=== PATIENT | male | born 1935 | race Caucasian/White ===

== ENCOUNTER 2017-08-05 15:00 | Observation (INO) | payer MEDICARE, SELFPAY ==
[2017-08-05 15:01] VITALS: BP 109/55; PULSE 75; RESP 16; TEMP 36.2; O2SAT 92; BMI 30.6
--- NOTE | 2017-08-05 15:04 | HMH.EDGENADL ---
ED Disposition Clinical Impression: Syncope Qualifiers: Syncope type: unspecified Qualified Code(s): R55 - Syncope and collapse Disposition: Still a Patient Condition on Discharge: Good - Critical Care Critical Care Time: No Attestation: On , the high probability of a clinically significant, sudden or life threatening deterioration of the following system(s) required my full and direct attention, intervention and personal management. The time I documented below is in addition to time spent performing reported procedures but includes the following listed in this critical care notation. Medical Decision Making Vital Signs: 08/05/17 15:01 Temperature 97.2 F L Temperature Source Oral Pulse Rate [Right Radial] 75 Respiratory Rate 16 Blood Pressure [Right Arm] 109/55 Blood Pressure Mean [Right Arm] 73 Blood Pressure Source [Right Arm] Automatic Cuff Blood Pressure Position [Right Arm] Sitting 02 Sat by Pulse Oximetry 92 L Oxygen Delivery Method Room Air - Lab Data Lab Results 08/05/17 15:00: WBC 8.8, RBC 5.01, Hgb 15.0, Hct 47.7, MCV 95.1 H, MCH 30.0, MCHC 31.6 L, RDW 12.6, Plt Count 258, MPV 8.3, Neut % (Auto) 60.9, Lymph % (Auto) 28.2, [place] % (Auto) 9.9 H, Eos % (Auto) 0.7, Baso % (Auto) 0.4, Neut # (Auto) 5.3, Lymph # (Auto) 2.5, [place] # (Auto) 0.9, Eos # (Auto) 0.1, Baso # (Auto) 0.0 08/05/17 15:00: Sodium 139, Potassium 3.5, Chloride 101, Carbon Dioxide 29, Anion Gap 12.5, BUN 21 H, Creatinine 1.45 H, Estimated Creat Clear 61, Estimated GFR 47 L, Est GFR ( Amer) 57 L, Glucose 141 H, Calcium 9.3, Total Bilirubin 0.6, AST 15, ALT 20, Alkaline Phosphatase 93, Total Creatine Kinase 79, CK-MB (CK-2) 1.0, CK-MB (CK-2) Rel Index 1.3, Troponin I 0.04, Total Protein 7.4, Albumin 3.5, Globulin 3.9 H, Albumin/Globulin Ratio 0.9 L Result diagrams: 08/05/17 15:00 08/05/17 15:00 - CT Data CT Scan: Head Time Received: 17:[address] Reviewed: Yes: I have viewed the radiologist's interpretation Findings Narrative: No acute process. Mild paranasal sinus disease maxillary and ethmoid sinuses. - ECG Data Tracing #1 EKG interpreted by Tate Hernandez MD: Rhythm: sinus Rate: 77 [place]: Left Ectopy: Single PVC Conduction: Nonspecific intraventricular conduction delay ST Segment Changes: none T Wave Changes: none Q Waves: none No evidence of acute ischemia or injury - Mike Inquiry Pt receiving controlled substance: No Medical Decision Making Narrative: 6:05 PM: I have discussed the case with Dr. Brantley who prefers to admit the patient to the hospital. We discussed the patient's clinical information, including history, exam, laboratory and radiology results and ED course. Per hospital procedure, I will write temporary bridge inpatient orders on the patient. 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 He was at a . He began feeling a little dizzy and not and according to his she felt him pushing on her leg and when she looked at him he was unresponsive and flaccid. She says the total episode lasted 5 minutes before he began talking again. He was completely alert and oriented once he began talking, no evidence of a post ictal state. There was a nurse present at the scene and she said that his pulse got weak, but apparently did not lose a pulse. He says that he has no pain and did not have any pain at the time. No headache, abdominal pain, chest pain, or back pain. He is not short of breath. He has had a mild cold for a few days. He has felt fatigued or weak when he gets up and walks around for the past few days. No history of syncope in the past. No new medications. - Related Data Home Medications Medication Instructions Recorded Confir
[2017-08-05 15:06] VITALS: BMI 31.1
--- NOTE | 2017-08-05 15:20 | CT_ITS ---
CT head/brain wo con HISTORY: ITS.REASON: SYNCOPE ORDERING PHYSICIAN: Tate Hernandez MD PATIENT AGE: 81 years COMPARISON: None TECHNIQUE: Axial images obtained without contrast. Brain and bone windows reviewed. FINDINGS: No midline shift, mass effect, intracranial hemorrhage, hydrocephalus, or extra-axial fluid collection is evident. Atrophy with periventricular ischemic gliotic change. The calvarium has an unremarkable appearance. No mastoid effusion. Mild mucosal thickening maxillary sinuses and ethmoid sinus.. IMPRESSION: 1. No acute finding. 2. Atrophy with periventricular ischemic gliotic change. 3. Paranasal sinus disease.
[2017-08-05 15:22] LABS: Basophils % 0.4 % (0.1-2.0); Eosinophils # 0.1 K/mm3 (0.0-0.4); Eosinophils % 0.7 % (0.1-12.0); Hematocrit 47.7 % (42.0-52.0); Lymphocytes # 2.5 K/mm3 (0.7-4.5); Lymphocytes % 28.2 K/mm3 (10-50); Mean Corpuscular HGB Conc 31.6 g/dL (31.8-35.4); Mean Corpuscular Volume 95.1 fl (80-94); Mean Platelet Volume 8.3 fl (7.4-10.4); Monocytes # 0.9 K/mm3 (0.1-1.0); Monocytes % 9.9 % (1.7-9.3); Neutrophils # 5.3 K/mm3 (1.8-7.8); Neutrophils % 60.9 % (37.0-80.0); Platelet Count 258 K/mm3 (142-424); Red Blood Count 5.01 M/mm3 (4.60-6.20); Red Cell Distribution Width 12.6 % (11.5-17.5); White Blood Count 8.8 K/mm3 (4.8-10.8)
[2017-08-05 15:46] LABS: Alanine Aminotransferase 20 U/L (12-78); Albumin Level 3.5 gm/dL (3.4-5.0); Albumin/Globulin Ratio 0.9 (1.1-1.8); Alkaline Phosphatase 93 U/L (46-116); Anion Gap 12.5 mEq/L (5-15); Aspartate Amino Transferase 15 U/L (15-37); Bilirubin,Total 0.6 mg/dL (0.2-1.0); Blood Urea Nitrogen 21 mg/dL (7-18); CKMB Relative Index 1.3 U/L (0-4.0); Calcium 9.3 mg/dL (8.5-10.1); Carbon Dioxide 29 mmol/L (21.0-32.0); Chloride 101 mmol/L (98-107); Creatine Kinase 79 U/L (39-308); Creatinine Clearance Estimated 61 mL/min (0-300); Creatinine,Serum 1.45 mg/dL (0.70-1.30); Estimated Glomerular Filt Rate 47 ml/min (>60); GFR (African American) 57 ML/MIN (>60); Globulin 3.9 gm/dl (1.3-3.2); Potassium 3.5 mmoL/L (3.5-5.1); Sodium 139 mmol/L (136-145); Total Protein,Serum 7.4 gm/dL (6.4-8.2); Troponin I 0.04 ng/ml (0.00-0.06)
[2017-08-05 15:54] LABS: Glucose 141 mg/dL (74-106)
--- NOTE | 2017-08-05 16:50 | XR_ITS ---
XR chest portable HISTORY: ITS.REASON: cough ORDERING PHYSICIAN: Tate Hernandez MD PATIENT AGE: 81 years COMPARISON: 12/04/2015 FINDINGS: The cardiomediastinal silhouette and pulmonary vascularity are within normal limits. The lungs are clear without infiltrates, suspicious nodules, or pleural effusions. Chronic changes are present in the lung bases. No acute bony abnormalities. IMPRESSION: No acute finding
--- NOTE | 2017-08-05 18:54 | PC.NURSE ---
REPORT CALLED TO DORIAN SILVA RN
[2017-08-05 19:39] VITALS: BP 115/61; PULSE 81; RESP 12; TEMP 37.1; O2SAT 98
[2017-08-05 19:47] VITALS: BP 100/79; PULSE 63; RESP 18; TEMP 36.7; O2SAT 100; BMI 32.1
[2017-08-05 20:00] VITALS: PULSE 70
--- NOTE | 2017-08-05 20:48 | HMH.HP ---
*Admission Date: 08/05/17 *Chief complaint: Syncope *History of present illness: This 81-year-old white male was sitting in a chair at a when he lost consciousness. His was sitting next to him and felt his leg fall against hers and then noticed that he was not responsive. He was placed on the floor and may have had some chest compressions briefly before he regained consciousness. His estimates the time at about 7 or 8 minutes that he was not conscious. When he regained consciousness he was not post ictal. He was brought to the emergency room by ambulance. EKG and cardiac enzymes initially are normal. He does show some ectopic activity on EKG and on heart monitor. He has no prior history of syncope. He states that he has not felt well the past 2 days but has had no specific dizziness. He has noted some dizziness in the past if he stands too quickly from a sitting position. He does have hypertension and edema and takes Exforge 5/160 and takes furosemide 20 mg daily. [facility] History Medical History: Denies:: Cancer, Cerebrovascular Accident (He reports he had some sort of life-threatening illness as a young child ), Diabetes Mellitus Type 1, Diabetes Mellitus Type 2, Internal Pacemaker, MRSA, Myocardial Infarction, Transient Ischemic Attacks (TIA) Laterality Cases: Bilateral: Total Knee Replacement (LTK May 2012, RTK May 2013), Other (Vein stripping) Other Surgeries: Yes: Hernia Repair (Inguinal). No: Pacemaker Amputation: No Fractures: No - *Social History Educational Level: Completed Graduate School Smoking Status: Former smoker #Yrs smoked (if former smoker): 20 (Quit 1999) Smoking End Date: 1999 Alcohol Intake: current Alcohol Intake Frequency:: a few times a month Substance Use Type: denies use Occupational Status: retired Housing: house Household Members: spouse - Psychiatric History Expresses thoughts of harming self/others: None Suicide Plan Description: No Plan *Family Hx:: Cancer, Diabetes, Heart Attack, Hypertension Comment: Both parents lived to be quite elderly (80's). He has a sister who is elderly(85). - Pediatric Specific History Comment: As a child he overheard a doctor tell his father that he would not live past the age of 18. He does not know the details of the illness that he had. Review of Systems - Constitutional Reports malaise, Denies anorexia, Denies body ache(s), Denies weight loss - Eyes Denies blurry vision - ENT Reports abnormal hearing, Reports dizziness, Denies poor balance, Denies sore throat, Denies throat swelling Comments: Some mild orthostatic dizziness - *Cardiovascular Reports leg swelling, Denies chest pain, Denies chest pain with activity, Denies generalized swelling, Denies irregular heart rhythm, Denies lightheadedness, Denies shortness of breath when lying down, Denies rapid, pounding, or irregular heartbeat Comments: He does have chronic leg edema. - *Respiratory Reports chest congestion, Reports cough, Denies stridor, Denies wheezing - *Gastrointestinal Denies abdominal pain, Denies change in bowel habits, Denies vomiting - *Genitourinary Denies difficulty urinating - *Musculoskeletal Reports joint pain, Denies abnormal walking - Integumentary/Breasts Denies new lesions - *Neurologic Reports dizziness, Reports fainting, Denies abnormal speech, Denies behavioral changes, Denies confusion, Denies seizure-like activity, Denies headache(s), Denies numbness, Denies tremor(s), Denies weakness - Psychiatric Denies anxiety, Denies behavioral changes, Denies change in appetite - Endocrine Denies rapid, pounding, or irregular heartbeat - Hematologic/Lymphatic Denies easy bleeding, Denies easy bruising - Allergic/Immunologic Denies GI upset with certain foods Meds Home Medications Medication Instructions Recorded Confirmed Type Amlodipine/Valsartan 5 - 160 mg PO DAILY 08/05/17 08/05/17 History [Amlodipine-Valsartan 5-160 mg]
--- NOTE | 2017-08-05 20:52 | P.HP_ITS ---
*Admission Date: 08/05/17 *Chief complaint: Syncope *History of present illness: This 81-year-old white male was sitting in a chair at a when he lost consciousness. His was sitting next to him and felt his leg fall against hers and then noticed that he was not responsive. He was placed on the floor and may have had some chest compressions briefly before he regained consciousness. His estimates the time at about 7 or 8 minutes that he was not conscious. When he regained consciousness he was not post ictal. He was brought to the emergency room by ambulance. EKG and cardiac enzymes initially are normal. He does show some ectopic activity on EKG and on heart monitor. He has no prior history of syncope. He states that he has not felt well the past 2 days but has had no specific dizziness. He has noted some dizziness in the past if he stands too quickly from a sitting position. He does have hypertension and edema and takes Exforge 5/160 and takes furosemide 20 mg daily. [facility] History Medical History: Denies:: Cancer, Cerebrovascular Accident (He reports he had some sort of life-threatening illness as a young child ), Diabetes Mellitus Type 1, Diabetes Mellitus Type 2, Internal Pacemaker, MRSA, Myocardial Infarction, Transient Ischemic Attacks (TIA) Laterality Cases: Bilateral: Total Knee Replacement (LTK May 2012, RTK May 2013), Other (Vein stripping) Other Surgeries: Yes: Hernia Repair (Inguinal). No: Pacemaker Amputation: No Fractures: No - *Social History Educational Level: Completed Graduate School Smoking Status: Former smoker #Yrs smoked (if former smoker): 20 (Quit 1999) Smoking End Date: 1999 Alcohol Intake: current Alcohol Intake Frequency:: a few times a month Substance Use Type: denies use Occupational Status: retired Housing: house Household Members: spouse - Psychiatric History Expresses thoughts of harming self/others: None Suicide Plan Description: No Plan *Family Hx:: Cancer, Diabetes, Heart Attack, Hypertension Comment: Both parents lived to be quite elderly (80's). He has a sister who is elderly(85). - Pediatric Specific History Comment: As a child he overheard a doctor tell his father that he would not live past the age of 18. He does not know the details of the illness that he had. Review of Systems - Constitutional Reports malaise, Denies anorexia, Denies body ache(s), Denies weight loss - Eyes Denies blurry vision - ENT Reports abnormal hearing, Reports dizziness, Denies poor balance, Denies sore throat, Denies throat swelling Comments: Some mild orthostatic dizziness - *Cardiovascular Reports leg swelling, Denies chest pain, Denies chest pain with activity, Denies generalized swelling, Denies irregular heart rhythm, Denies lightheadedness, Denies shortness of breath when lying down, Denies rapid, pounding, or irregular heartbeat Comments: He does have chronic leg edema. - *Respiratory Reports chest congestion, Reports cough, Denies stridor, Denies wheezing - *Gastrointestinal Denies abdominal pain, Denies change in bowel habits, Denies vomiting - *Genitourinary Denies difficulty urinating - *Musculoskeletal Reports joint pain, Denies abnormal walking - Integumentary/Breasts Denies new lesions - *Neurologic Reports dizziness, Reports fainting, Denies abnormal speech, Denies behavioral changes, Denies confusion, Denies seizure-like activity, Denies headache(s), Denies numbness, Denies tremor(s), Denies weakness - Psychiatric Denies anxiety, Denies behavioral changes, Denies change in
[2017-08-05 22:16] LABS: CKMB Relative Index 1.1 U/L (0-4.0); Creatine Kinase 89 U/L (39-308); Troponin I 0.03 ng/ml (0.00-0.06)
[2017-08-06] VITALS (9 sets, daily range): BP systolic 112–136; BP diastolic 65–85; PULSE 59–75; RESP 17–18; TEMP 36.3–36.9; O2SAT 92–93
--- NOTE | 2017-08-06 03:58 | PC.NURSE ---
LAYING IN BED RESTING AT THIS TIME. SPOUSE AT BEDSIDE. HAS REST MOST OF NIGHT, NO COMPLAINTS OF PAIN OR SYNCOPE. HAS HAD SINUS ARYTHMIA WITH PJC'S ON TELEMETRY. HAS A ECHO SCHEDULED AT 0800. LUNGS ARE CLEAR, RESP EVEN AND NONLABORED. HAS BEEN UP TO RESTROOM WITH STANDBY ASSIST, HAS TOLERATED WELL. IV IS PATENT. STATES HAS NO NEEDS AT THIS TIME. BED LOCKED IN LOW POSITION, SIDE RALES UP X 2. CALL LIGHT WITHIN REACH. WILL CONTINUE TO MONITOR. ENCOURAGED TO CALL OUT FOR ANY NEEDS.
--- NOTE | 2017-08-06 07:33 | PC.NURSE ---
Report received from Grazyna Funk RN
[2017-08-06 07:34] LABS: Alanine Aminotransferase 19 U/L (12-78); Albumin Level 2.8 gm/dL (3.4-5.0); Albumin/Globulin Ratio 0.8 (1.1-1.8); Alkaline Phosphatase 75 U/L (46-116); Anion Gap 11.4 mEq/L (5-15); Aspartate Amino Transferase 17 U/L (15-37); Bilirubin,Total 0.5 mg/dL (0.2-1.0); Blood Urea Nitrogen 18 mg/dL (7-18); CKMB Relative Index 0.8 U/L (0-4.0); Carbon Dioxide 28 mmol/L (21.0-32.0); Chloride 106 mmol/L (98-107); Creatine Kinase 78 U/L (39-308); Creatine Kinase MB 0.6 mg/ml (0.0-3.6); Creatinine Clearance Estimated 94 mL/min (0-300); Creatinine,Serum 0.87 mg/dL (0.70-1.30); Estimated Glomerular Filt Rate 85 ml/min (>60); GFR (African American) 102 ML/MIN (>60); Globulin 3.4 gm/dl (1.3-3.2); Glucose 99 mg/dL (74-106); Potassium 3.4 mmoL/L (3.5-5.1); Sodium 142 mmol/L (136-145); Total Protein,Serum 6.2 gm/dL (6.4-8.2); Troponin I 0.04 ng/ml (0.00-0.06)
[2017-08-06 07:39] LABS: Basophils % 0.4 % (0.1-2.0); Eosinophils % 0.6 % (0.1-12.0); Hematocrit 41.3 % (42.0-52.0); Lymphocytes # 1.6 K/mm3 (0.7-4.5); Lymphocytes % 29.7 K/mm3 (10-50); Mean Corpuscular HGB Conc 32.1 g/dL (31.8-35.4); Mean Corpuscular Hemoglobin 30.1 pg (27.0-31.2); Mean Corpuscular Volume 93.8 fl (80-94); Mean Platelet Volume 8.3 fl (7.4-10.4); Monocytes # 0.7 K/mm3 (0.1-1.0); Neutrophils % 56.3 % (37.0-80.0); Platelet Count 204 K/mm3 (142-424); Red Cell Distribution Width 12.7 % (11.5-17.5); White Blood Count 5.4 K/mm3 (4.8-10.8)
[2017-08-06 07:48] LABS: Calcium 8.3 mg/dL (8.5-10.1)
[2017-08-06 07:53] LABS: Hemoglobin 13.2 g/dL (14.1-18.0)
--- NOTE | 2017-08-06 09:49 | HMH.PHAVTE ---
[facility] Pharmacy VTE Monitoring - Patient Demographics Admission date: 08/05/17 Report Date: 08/06/17 Time: 09:49 Allergies/Adverse Reactions: Patient Allergies NKDA Allergy (Unknown, Uncoded 06/21/17 14:33) Height: 1.85 m Weight: 110.45 kg Patient Problems: Current Active Problems Syncope (Acute) Ectopic beats (Acute) Hypertension (Chronic) Edema (Chronic) - VTE Risk Labs: VTE Related Lab Results Hgb 13.2 g/dL (14.1-18.0) L D 08/06/17 06:05 Hct 41.3 % (42.0-52.0) L 08/06/17 06:05 Plt Count 204 K/mm3 (142-424) 08/06/17 06:05 BUN 18 mg/dL (7-18) 08/06/17 06:05 Creatinine 0.87 mg/dL (0.70-1.30) D 08/06/17 06:05 Estimated Creat Clear 94 mL/min (0-300) 08/06/17 06:05 Was VTE Risk Assessment Performed: Yes VTE Score: 2 VTE Risk Level: Very Low Risk - Prophylaxis VTE Prophylaxis Ordered?: Yes Types of VTE Prophylaxis: TEDS Knee High Location of Applied Device: Bilateral Lower Extremeties
--- NOTE | 2017-08-06 14:47 | HMH.ACPN2 ---
Internal Medicine - PN: Subj *Date: 08/06/17 *Time: 14:47 Interval history: The patient was seen this morning. He remained stable through the night. He shows frequent junctional ectopics and sinus arrhythmia. EKG is being repeated. Troponins were negative. His potassium was slightly low. Potassium was 3.5 on admission and 3.4 this morning. He is in no acute distress and has no chest pain. The patient's son is me that recently his father is seemed to show more difficulty with his memory. He also states that he has fallen several times though it appears that this is not related to syncope. Exam Vital signs and Labs for Last 24 Hours: Temp Pulse Resp BP Pulse Ox 97.4 F L 64 18 136/85 93 L 08/06/17 11:22 08/06/17 11:22 08/06/17 11:22 08/06/17 11:22 08/06/17 11:22 Laboratory Results - last 24 hr 08/05/17 21:35: Total Creatine Kinase 89, CK-MB (CK-2) 1.0, CK-MB (CK-2) Rel Index 1.1, Troponin I 0.03 08/06/17 06:05: Sodium 142, Potassium 3.4 L, Chloride 106, Carbon Dioxide 28, Anion Gap 11.4, BUN 18, Creatinine 0.87 D, Estimated Creat Clear 94, Estimated GFR 85, Est GFR ( Amer) 102 D, Glucose 99 D, Calcium 8.3 L D, Total Bilirubin 0.5, AST 17, ALT 19, Alkaline Phosphatase 75, Total Creatine Kinase 78, CK-MB (CK-2) 0.6 D, CK-MB (CK-2) Rel Index 0.8, Troponin I 0.04, Total Protein 6.2 L, Albumin 2.8 L D, Globulin 3.4 H, Albumin/Globulin Ratio 0.8 L 08/06/17 06:05: WBC 5.4 D, RBC 4.40 L, Hgb 13.2 L D, Hct 41.3 L, MCV 93.8, MCH 30.1, MCHC 32.1, RDW 12.7, Plt Count 204, MPV 8.3, Neut % (Auto) 56.3, Lymph % (Auto) 29.7, [place] % (Auto) 13.0 H, Eos % (Auto) 0.6, Baso % (Auto) 0.4, Neut # (Auto) 3.0, Lymph # (Auto) 1.6, [place] # (Auto) 0.7, Eos # (Auto) 0.0, Baso # (Auto) 0.0 Selected Entries 08/05/17 15:01 08/05/17 19:47 08/06/17 00:15 02 Sat by Pulse Oximetry 92 L 100 92 L 08/06/17 04:00 08/06/17 07:34 08/06/17 11:22 02 Sat by Pulse Oximetry 93 L 92 L 93 L Laboratory Tests 08/05/17 08/05/17 08/05/17 15:00 15:00 21:35 WBC 8.8 Hgb 15.0 Potassium 3.5 Creatinine 1.45 H Troponin I 0.04 0.03 08/06/17 08/06/17 06:05 06:05 WBC 5.4 D Hgb 13.2 L D Potassium 3.4 L Creatinine 0.87 D Troponin I 0.04 I & O for Last 24 hours: Intake & Output 08/04/17 08/05/17 08/06/17 08/07/17 11:59 11:59 11:59 11:59 Intake Total 1001 / 1001 480 / 480 Balance 1001 / 1001 480 / 480 Weight 243 lb 8 oz - Constitutional no acute distress - *Routine HEENT Exam Head: Present: normocephalic, atraumatic Eye: Present: PERRL ENT: Present: mucous membranes moist - *Routine Respiratory Exam Present: CTA bilaterally - *Routine Cardiovascular Exam Comments: His rhythm seems to be regular though there are ectopics noted. - *Routine Abdominal Exam Present: soft. Absent: tenderness - *Routine Extremities Exam Comments: Trace to 1+ leg edema. Assessment and Plan (1) Syncope Current visit: Yes Status: Acute Qualifiers: Syncope type: unspecified Qualified Code(s): R55 - Syncope and collapse Category: Medical Code(s): R55 - Syncope and collapse (2) Ectopic beats Current visit: Yes Status: Acute Category: Medical Code(s): I49.49 - Other premature depolarization (3) Hypertension Current visit: Yes Status: Chronic Category: Medical Code(s): I10 - Essential (primary) hypertension (4) Edema Current visit: Yes Status: Chronic Category: Medical Code(s): R60.9 - Edema, unspecified - Assessment and plan all Dx Assessment and Plan for all problems:: Awaiting repeat EKG. His EKG in the emergency room showed sinus rhythm with an occasional PVC. He can probably be discharged with a Holter monitor in place. I will also give prescription for potassium 20 mEq a day. I would like to see him Tuesday (in 2 days) to arrange for cardiology evaluation. He should restrict his activity until then.
--- NOTE | 2017-08-06 14:51 | P.PN_ITS ---
Internal Medicine - PN: Subj *Date: 08/06/17 *Time: 14:47 Interval history: The patient was seen this morning. He remained stable through the night. He shows frequent junctional ectopics and sinus arrhythmia. EKG is being repeated. Troponins were negative. His potassium was slightly low. Potassium was 3.5 on admission and 3.4 this morning. He is in no acute distress and has no chest pain. The patient's son is me that recently his father is seemed to show more difficulty with his memory. He also states that he has fallen several times though it appears that this is not related to syncope. Exam Vital signs and Labs for Last 24 Hours: Temp Pulse Resp BP Pulse Ox 97.4 F L 64 18 136/85 93 L 08/06/17 11:22 08/06/17 11:22 08/06/17 11:22 08/06/17 11:22 08/06/17 11:22 Laboratory Results - last 24 hr 08/05/17 21:35: Total Creatine Kinase 89, CK-MB (CK-2) 1.0, CK-MB (CK-2) Rel Index 1.1, Troponin I 0.03 08/06/17 06:05: Sodium 142, Potassium 3.4 L, Chloride 106, Carbon Dioxide 28, Anion Gap 11.4, BUN 18, Creatinine 0.87 D, Estimated Creat Clear 94, Estimated GFR 85, Est GFR ( Amer) 102 D, Glucose 99 D, Calcium 8.3 L D, Total Bilirubin 0.5, AST 17, ALT 19, Alkaline Phosphatase 75, Total Creatine Kinase 78 , CK-MB (CK-2) 0.6 D, CK-MB (CK-2) Rel Index 0.8, Troponin I 0.04, Total Protein 6.2 L, Albumin 2.8 L D, Globulin 3.4 H, Albumin/Globulin Ratio 0.8 L 08/06/17 06:05: WBC 5.4 D, RBC 4.40 L, Hgb 13.2 L D, Hct 41.3 L, MCV 93.8, MCH 30.1, MCHC 32.1, RDW 12.7, Plt Count 204, MPV 8.3, Neut % (Auto) 56.3, Lymph % ( Auto) 29.7, [place] % (Auto) 13.0 H, Eos % (Auto) 0.6, Baso % (Auto) 0.4, Neut # ( Auto) 3.0, Lymph # (Auto) 1.6, [place] # (Auto) 0.7, Eos # (Auto) 0.0, Baso # (Auto ) 0.0 Selected Entries 08/05/17 15:01 08/05/17 19:47 08/06/17 00:15 02 Sat by Pulse Oximetry 92 L 100 92 L 08/06/17 04:00 08/06/17 07:34 08/06/17 11:22 02 Sat by Pulse Oximetry 93 L 92 L 93 L Laboratory Tests 08/05/17 08/05/17 08/05/17 15:00 15:00 21:35 WBC 8.8 Hgb 15.0 Potassium 3.5 Creatinine 1.45 H Troponin I 0.04 0.03 08/06/17 08/06/17 06:05 06:05 WBC 5.4 D Hgb 13.2 L D Potassium 3.4 L Creatinine 0.87 D Troponin I 0.04 I & O for Last 24 hours: Intake & Output 08/04/17 08/05/17 08/06/17 08/07/17 11:59 11:59 11:59 11:59 Intake Total 1001 / 1001 480 / 480 Balance 1001 / 1001 480 / 480 Weight 243 lb 8 oz - Constitutional no acute distress - *Routine HEENT Exam Head: Present: normocephalic, atraumatic Eye: Present: PERRL ENT: Present: mucous membranes moist - *Routine Respiratory Exam Present: CTA bilaterally - *Routine Cardiovascular Exam Comments: His rhythm seems to be regular though there are ectopics noted. - *Routine Abdominal Exam Present: soft. Absent: tenderness - *Routine Extremities Exam Comments: Trace to 1+ leg edema. Assessment and Plan (1) Syncope Current visit: Yes Status: Acute Qualifiers: Syncope type: unspecified Qualified Code(s): R55 - Syncope and collapse Category: Medical Code(s): R55 - Syncope and collapse (2) Ectopic beats Current visit: Yes Status: Acute Category: Medical Code(s): I49.49 - Other pre
[2017-08-06 15:40] LABS: Thyroid Stimulating Hormone 0.53 uIU/ml (0.358-3.740)
--- NOTE | 2017-08-06 16:25 | PC.NURSE ---
hospital monitor removed, cleaned and returned to marketing community liaison area.
--- NOTE | 2017-08-06 16:37 | PC.NURSE ---
Pt home meds given back to patient.
--- NOTE | 2017-08-08 20:54 | HMH.DCSUM ---
General - General Admission date: 08/05/17 Discharge date: 08/06/17 HPI HPI: This 81-year-old white male was sitting in a chair at a when he lost consciousness. His was sitting next to him and felt his leg fall against hers and then noticed that he was not responsive. He was placed on the floor and may have had some chest compressions briefly before he regained consciousness. His estimates the time at about 7 or 8 minutes that he was not conscious. When he regained consciousness he was not post ictal. He was brought to the emergency room by ambulance. EKG and cardiac enzymes initially are normal. He does show some ectopic activity on EKG and on heart monitor. He has no prior history of syncope. He states that he has not felt well the past 2 days but has had no specific dizziness. He has noted some dizziness in the past if he stands too quickly from a sitting position. He does have hypertension and edema and takes Exforge 5/160 and takes furosemide 20 mg daily. Objective Vital signs: Temp Pulse Resp BP Pulse Ox 98.5 F 59 L 18 122/75 92 L 08/06/17 16:36 08/06/17 16:36 08/06/17 16:36 08/06/17 16:36 08/06/17 16:36 Narrative: - Constitutional no acute distress, cooperative - *Routine HEENT Exam Eye: Present: EOMI, PERRL. Absent: conjunctival icterus, nystagmus ENT: Present: mucous membranes moist, external ear normal - *Routine Neck Exam Present: supple. Absent: lymphadenopathy, thyromegaly - Routine Chest/Breast/Axilla Exam Chest wall: Absent: tenderness - *Routine Respiratory Exam Comments: Good air movement bilaterally. A few rhonchi are heard in the left base. - *Routine Cardiovascular Exam Comments: An occasional ectopic is noted - *Routine Abdominal Exam Present: soft. Absent: tenderness, distended, organomegaly - *Routine Extremities Exam Present: edema (2+ better than usual) - Routine Back/Spine/Pelvis Exam Comments: Mild dorsal kyphosis Hospital Course Hospital Course: He was admitted for overnight observation and equipment monitor phototypesetting. The patient remained stable through the night. He showed frequent junctional ectopics and sinus arrhythmia. Troponins were negative. His potassium was slightly low. The patient's son stated recently his father seemed to show more difficulty with his memory. He also stated that he had fallen several times though it appeared that this was not related to syncope. He was stable to be discharged home with a Holter monitor in place. He was also given a prescription for potassium 20 mEq a day. He will f/u in the office of [facility] to arrange for cardiology evaluation. DS: Diagnosis - Discharge Diagnosis (1) Ectopic beats Status: Acute (2) Syncope Status: Acute (3) Edema Status: Chronic (4) Hypertension Status: Chronic Meds Home Medications Medication Instructions Recorded Confirmed Type Amlodipine/Valsartan 5 - 160 mg PO DAILY 08/05/17 08/05/17 History [Amlodipine-Valsartan 5-160 mg] Atorvastatin Calcium [Atorvastatin 20 mg PO HS 08/05/17 08/06/17 History 20mg Tab] Furosemide [Furosemide 20mg Tab] 20 mg PO DAILY 08/05/17 08/05/17 History Allergies Allergy/AdvReac Type Severity Reaction Status Date / Time NKDA Allergy Unknown Uncoded 06/21/17 14:33 Discharge Plan - Patient Discharge Instructions ACTIVITY: Limited activity DIET: continue same diet Additional Instructions: As tolerated Patient Instructions: DI for Syncope in Adults (Fainting) - Follow up Plan Follow up with: Cynthia Brantley MD [Family Provider] - Disposition: Home, Self-Long Term Medications: Home Medications Medication Instructions Recorded Confirmed Type Amlodipine/Valsartan 5 - 160 mg PO DAILY 08/05/17 08/05/17 History [Amlodipine-Valsartan 5-160 mg] Atorvastatin Calcium [Atorvastatin 20 mg PO HS 08/05/17 08/06/17 History 20mg Tab] Furosemide [Furosemide 20mg T
--- NOTE | 2017-08-08 21:01 | P.DS_ITS ---
General - General Admission date: 08/05/17 Discharge date: 08/06/17 HPI HPI: This 81-year-old white male was sitting in a chair at a when he lost consciousness. His was sitting next to him and felt his leg fall against hers and then noticed that he was not responsive. He was placed on the floor and may have had some chest compressions briefly before he regained consciousness. His estimates the time at about 7 or 8 minutes that he was not conscious. When he regained consciousness he was not post ictal. He was brought to the emergency room by ambulance. EKG and cardiac enzymes initially are normal. He does show some ectopic activity on EKG and on heart monitor. He has no prior history of syncope. He states that he has not felt well the past 2 days but has had no specific dizziness. He has noted some dizziness in the past if he stands too quickly from a sitting position. He does have hypertension and edema and takes Exforge 5/160 and takes furosemide 20 mg daily. Objective Vital signs: Temp Pulse Resp BP Pulse Ox 98.5 F 59 L 18 122/75 92 L 08/06/17 16:36 08/06/17 16:36 08/06/17 16:36 08/06/17 16:36 08/06/17 16:36 Narrative: - Constitutional no acute distress, cooperative - *Routine HEENT Exam Eye: Present: EOMI, PERRL. Absent: conjunctival icterus, nystagmus ENT: Present: mucous membranes moist, external ear normal - *Routine Neck Exam Present: supple. Absent: lymphadenopathy, thyromegaly - Routine Chest/Breast/Axilla Exam Chest wall: Absent: tenderness - *Routine Respiratory Exam Comments: Good air movement bilaterally. A few rhonchi are heard in the left base. - *Routine Cardiovascular Exam Comments: An occasional ectopic is noted - *Routine Abdominal Exam Present: soft. Absent: tenderness, distended, organomegaly - *Routine Extremities Exam Present: edema (2+ better than usual) - Routine Back/Spine/Pelvis Exam Comments: Mild dorsal kyphosis Hospital Course Hospital Course: He was admitted for overnight observation and gut snatcher. The patient remained stable through the night. He showed frequent junctional ectopics and sinus arrhythmia. Troponins were negative. His potassium was slightly low. The patient's son stated recently his father seemed to show more difficulty with his memory. He also stated that he had fallen several times though it appeared that this was not related to syncope. He was stable to be discharged home with a Holter monitor in place. He was also given a prescription for potassium 20 mEq a day. He will f/u in the office of [facility] to arrange for cardiology evaluation. DS: Diagnosis - Discharge Diagnosis (1) Ectopic beats Status: Acute (2) Syncope Status: Acute (3) Edema Status: Chronic (4) Hypertension Status: Chronic Meds Home Medications Medication Instructions Recorded Confirmed Type Amlodipine/Valsartan 5 - 160 mg PO DAILY 08/05/17 08/05/17 History [Amlodipine-Valsartan 5-160 mg] Atorvastatin Calcium [Atorvastatin 20 mg PO HS 08/05/17 08/06/17 History 20mg Tab] Furosemide [Furosemide 20mg Tab] 20 mg PO DAILY 08/05/17 08/05/17 History Allergies Allergy/AdvReac Type Severity Reaction Status Date / Time NKDA Allergy Unknown Uncoded 06/21/17 14:33 Discharge Plan - Patient Discharge Instructions MARSHALL
== END 2017-08-06 16:45 | disposition home or self-care (01) ==
LOC: ER 18:13 → 2ND 20:48
PROVIDERS: Admitting Provider Family Medicine; Emergency Provider Emergency Medicine; Family Provider Family Medicine; Visit Provider Family Medicine
DX: R55 Syncope and collapse (principal); I49.49 Other premature depolarization; I10 Essential (primary) hypertension; R94.31 Abnormal electrocardiogram [ECG] [EKG]
CPT/HCPCS: 36415; 70450; 71045; 80053; 82550; 82553; 84443; 84484; 85025; 93005; 93041; 93225; 93226; 96365; 99283; G0378

== ENCOUNTER 2017-08-10 07:22 | Day surgery (SDC) | payer MEDICARE, SELFPAY ==
[2017-08-10] VITALS (12 sets, daily range): BP systolic 101–133; BP diastolic 64–79; PULSE 56–82; RESP 14–20; TEMP 36.6; O2SAT 91–94; BMI 32.7
--- NOTE | 2017-08-10 | IR_ITS ---
CARDIAC CATHETERIZATION DATE OF CATHETERIZATION:08/10/2017 10:24 AM PROCEDURES: 1. Left heart catheterization 2. Left ventriculogram 3. Selective coronary angiogram INDICATION FOR TEST: 1. Presumed sudden cardiac 2. Cardiac syncope Informed consent was obtained prior to the procedure. COMPLICATIONS: None ESTIMATED BLOOD LOSS: Less than 10 ml. TECHNIQUE: One percent lidocaine used to anesthetize the right anterior aspect of the wrist. The right radial artery was accessed via the Seldinger technique. A 6 Macanese sheath was placed in the right radial artery. 2.5 mg of verapamil, 800 mcg of nitroglycerin and 5000 U Heparin were given through the arterial sheath. The trap catheter was also used to perform left heart catheterization and left ventriculography. At the end of the procedure the patient was transferred to the post-op holding area in stable condition for arterial sheath removal. ANGIOGRAPHIC RESULTS: 1. The left main artery normal 2. The left anterior descending artery has proximal mild vascular ectasia and mild mid vessel vascular ectasia with no stenosis greater than 10%. The entire vessel has slow flow 3. The circumflex artery is a codominant vessel and has a high ramus intermedius which is with out focal stenosis greater than 20% but does have mild vascular ectasia. The circumflex artery has mild vascular ectasia. The terminal obtuse marginal artery has a 30% nonflow limiting stenosis. The entire vessel has slow flow 4. The right coronary artery is a codominant vessel and has mild to moderate vascular ectasia with slow flow down the entire vessel and 5. The RODRIGUEZ ventriculogram reveals at least mild left ventricular dilatation with mildly reduced ejection fraction estimated at 45-50% 6. The left ventricular end-diastolic pressure 20 mmHg IMPRESSION: 1. Diffuse endothelial dysfunction without significant atherosclerotic heart disease 2. Clinically insignificant vascular ectasia 3. Left ventricular dilatation with reduced ejection fraction 4. Elevated left ventricular end-diastolic pressure PLAN: 1. An echocardiogram will be obtained to better evaluate ejection fraction. 2. Given patient's syncope and presumed sudden cardiac the diagnosis of vasovagal syncope is less likely. I would now consider an AICD in this patient if echo confirms a reduction in ejection fraction 3. Risk factor modification
--- NOTE | 2017-08-10 10:29 | CA_ITS ---
PROCEDURE: 2-D M-mode and color Doppler study INDICATIONS FOR THE TEST: Chest pain COPD Heart Murmur Tobacco Smoking Palpitations Fatigue Syncope Edema Hypertension Diabetes Mellitus Rheumatic Fever SOB RICE Obesity Hyperlipidemia Family History HD Additional History Post Cath, Abnormal EKG No evidence of pericardial effusion. PATIENT INFORMATION HEIGHT: 6'1'' WEIGHT:248 GENDER: Male B/P:105/66 2-D/M-MODE INTERPRETATION: 2-D MEASUREMENTS OBSERVED VALUES IN CMS Right Ventricular Dimension (RVDd) 2.7 Interventricular Septum (Thickness)(IVsd) 1.2 Left Ventricular Internal Dimensions(LVIDd) 4.6 Left Ventricular Posterior Wall (Thickness)(LVPWd) 1.4 Aortic Root 3.6 Aortic Cusp Separation 1.9 Left Atrial Dimensions (LAD) 3.9 2D 1. Technically difficult study because of the patient's factor and poor acoustic windows 2. The left atrium is mildly enlarged, left ventricle is normal size, there is mild concentric left ventricular hypertrophy, visually estimated ejection fraction is approximately 50% with no obvious regional wall motion abnormality, endocardial surfaces are poorly visualized. 3. The right atrium and right ventricle are mildly enlarged with normal contractility. 4. The aortic valve is minimally thickened and fibrosed. 5. The mitral and tricuspid valve leaflets are minimally thickened. 6. No significant pericardial effusion noted. 7. The pulmonic valve is poorly visualized. DOPPLER INTERROGATION: Doppler interrogation of the aortic, mitral and tricuspid valvular presence of mild mitral and tricuspid regurgitation, tricuspid and jet velocity insufficient for calculation of the right ventricular systolic pressure, Doppler evidence of impaired LV relaxation seen. CONCLUSION: 1. Technically difficult study because of the patient's factor and poor acoustic windows 2. Mildly enlarged left atrium, normal left ventricular size, mild concentric left ventricular hypertrophy, visually estimated ejection fraction of 50-50% with no obvious regional wall motion abnormality, Doppler evidence of impaired relaxation seen. 3. Mild mitral and tricuspid regurgitation 4. No significant pericardial effusion noted.
--- NOTE | 2017-08-10 11:06 | SUR.PHASEII ---
feed research technician here and echo being obtained
== END 2017-08-10 14:16 | disposition home or self-care (01) ==
LOC: CATHLAB 07:26
PROVIDERS: Family Provider Family Medicine; PCP Family Medicine; Visit Provider Internal Medicine
DX: R55 Syncope and collapse (principal); I51.7 Cardiomegaly; Z86.74 Personal history of sudden cardiac arrest; I78.8 Other diseases of capillaries
CPT/HCPCS: 93306; 93458; 99152; C1725; C1760; C1769; J1644; Q9967

== ENCOUNTER 2017-08-11 08:14 | Day surgery (SDC) | payer MEDICARE, SELFPAY ==
[2017-08-11 08:25] VITALS: BMI 32.0
[2017-08-11 08:32] VITALS: BP 132/80; PULSE 74; RESP 14; O2SAT 93
[2017-08-11 09:31] VITALS: BP 140/77; PULSE 79; RESP 18; O2SAT 94
--- NOTE | 2017-08-11 12:00 | HMH.LOOP ---
[facility] Loop Recorder Date: 08/11/17 Time: 09:00 Procedure Performed:: Implantation of Loop recorder Indication:: Syncope Technique:: Patient was brought to the cardiac Marketing Strategy Lead. After informed consent obtained, 1% lidocaine with epinephrine was used to anesthetize the site along the left anterior aspect of the chest near the sternal border. Using the preformed scalpel, an incision was made and using the supplied preloaded apparatus, the loop recorder was placed subcutaneously without difficulty. Following the deployment of the loop recorder interrogation of the device was performed to ensure appropriate voltage was being detected. Once this was verified, Steri-Strips were placed over the incision and the patient was prepped to discharge home. Patient tolerated the procedure well with minimal discomfort. Date of the procedure: [July 11, 2017]. Time of procedure: [0900 AM]. Procedure performed: Successful implantation of loop recorder. Indication: [Syncope] Serial number: [[id number]] Plan: Routine postop care Impression:: Successful implantation of loop recorder. Serial Number:: [id number] Plan:: Routine postop care
--- NOTE | 2017-08-11 12:03 | P.PCN_ITS ---
[facility] Loop Recorder Date: 08/11/17 Time: 09:00 Procedure Performed:: Implantation of Loop recorder Indication:: Syncope Technique:: Patient was brought to the cardiac Marine Electronics Repairer. After informed consent obtained, 1 % lidocaine with epinephrine was used to anesthetize the site along the left anterior aspect of the chest near the sternal border. Using the preformed scalpel, an incision was made and using the supplied preloaded apparatus, the loop recorder was placed subcutaneously without difficulty. Following the deployment of the loop recorder interrogation of the device was performed to ensure appropriate voltage was being detected. Once this was verified, Steri- Strips were placed over the incision and the patient was prepped to discharge home. Patient tolerated the procedure well with minimal discomfort. Date of the procedure: [July 11, 2017]. Time of procedure: [0900 AM]. Procedure performed: Successful implantation of loop recorder. Indication: [Syncope] Serial number: [[id number]] Plan: Routine postop care Impression:: Successful implantation of loop recorder. Serial Number:: [id number] Plan:: Routine postop care
== END 2017-08-11 09:37 | disposition home or self-care (01) ==
PROVIDERS: Family Provider Family Medicine; PCP Family Medicine; Visit Provider Internal Medicine
DX: R55 Syncope and collapse (principal); I51.7 Cardiomegaly; Z86.74 Personal history of sudden cardiac arrest
CPT/HCPCS: 33282; C1764

== ENCOUNTER → 2017-11-09 11:55 | Outpatient (CLI) | payer MEDICARE, SELFPAY ==
--- NOTE | 2017-11-09 12:02 | XR_ITS ---
XR chest 2V HISTORY: ITS.REASON: COUGH ORDERING PHYSICIAN: Cynthia Brantley MD PATIENT AGE: 82 years COMPARISON: 08/05/2017 FINDINGS: Normal heart size. Loop recorder device is noted along the left paracentral aspect of the chest. There are chronic changes in both lower lobes similar to previous exam of 12/04/2015. No lobar consolidation or collapse. There are mild degenerative changes in the thoracic spine. IMPRESSION: Chronic changes, no change with no acute finding.
== END ==
PROVIDERS: PCP Family Medicine; Visit Provider Family Medicine
DX: R05 Cough (principal)
CPT/HCPCS: 71046

== ENCOUNTER → 2017-12-12 10:41 | Outpatient (CLI) | payer MEDICARE, SELFPAY ==
[2017-12-12 11:30] VITALS: PULSE 45; PULSE 46
== END ==
PROVIDERS: Family Provider Family Medicine; PCP Family Medicine; Visit Provider Family Medicine
DX: R05 Cough (principal); Z87.891 Personal history of nicotine dependence
CPT/HCPCS: 94060; 94640

== ENCOUNTER → 2018-10-09 11:35 | Outpatient (CLI) | payer MEDICARE, SELFPAY ==
--- NOTE | 2018-10-09 11:41 | NVE_ITS ---
Venous Exam Indications: 729.81 Swelling of limb. IMPRESSIONS No evidence of deep or superficial vein thrombosis involving the right lower extremity. Edema lower extremity, reflux noted lower extremity Right lower extremity venous duplex evaluation. Doppler flow study including spectral analysis, color and kay scale imaging. Location: Vascular laboratory. Patient status: Outpatient. Tables: Venous flow and imaging: + +-------+ + Location Overall Flow properties + +-------+ + Right common femoral Patent Normal phasicity; spontaneous; normal augmentation; compressible + +-------+ + Right saphenofemoral junction Patent Compressible + +-------+ + Right profunda femoral Patent Compressible + +-------+ + Right femoral Patent Normal phasicity; spontaneous; normal augmentation; compressible + +-------+ + Right greater saphenous Patent Normal phasicity; spontaneous; normal augmentation; compressible + +-------+ + Right popliteal Patent Normal phasicity; spontaneous; normal augmentation; compressible + +-------+ + Right posterior tibial Patent Compressible + +-------+ + Right peroneal Patent Compressible + +-------+ + Right gastrocnemius Patent Compressible + +-------+ + Right soleal Patent Compressible + +-------+ + (Report amended ) Electronically signed by: Guerrero Tenorio [id number]
== END ==
PROVIDERS: PCP Family Medicine; Visit Provider Nurse Practitioner Family
DX: M79.604 Pain in right leg (principal)
CPT/HCPCS: 93971

== ENCOUNTER 2019-01-10 11:00 | Outpatient (RCR) | payer MEDICARE, SELFPAY ==
--- NOTE | 2018-12-15 15:57 | HMH.PTOPWND ---
Rehab Outpt Wound Evaluation Rehab OP Wound Evaluation Start: 12/15/18 15:04 Freq: Status: Active Protocol: Document 12/15/18 15:29 SHOBHA (Rec: 12/15/18 15:57 PHORNE [id number]) Electronically Signed By Trenton Spain, PT 12/15/18 15:29 Subjective/History History History Pt is 83 yowm who presents with c/o increased edema in right LE x ~ 3 mos. He reports he slipped on something at his son's house without falling, but he might have done something to his leg at that time. He reports no c/o pain or numbness in the right LE, but has mild redness to the right dominguez. 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 He has PMH of HTN and HL. Subjective Subjective Currently no c/o pain or tenderness to palpation in the right LE. Lymphedema Eval Classification of Lymphedema Secondary Lymphedema Yes Stemmer's sign Stemmer's Sign no Stage of Lymphedema Lymphedema stages Stage I (Pitting edema, reduces w/ elevation, no fibrosis) Skin Changes Dry Skin Yes Redness Yes Brittle Uneven Nails Yes Discoloration of Skin Yes Pain Scale Pain Scale (0-10) 0 Affected Extremities Areas Affected by Lymphedema/Edema Right Lower Extremity Manual Lymphatic Drainage Treatment Area MLD Treatment Area Right Lower Extremity Wound Problems/Impairments Impairments Problems/Impairmments Impaired Walking,Impaired Recreational Activities, Increased Edema,Impaired Self Care/Self Management Prognosis Rehab Potential Good Clinical Impression Consistent with Diagnosis Yes Short Term Goals Number of Weeks 4 Patient to be Ind w/ [place] Yes Compression Garments Patient to Understand Lymphedema Yes Treatment and Exercises Decrease Girth Measurments by (cm) Yes: by 10 cm Skilled Nursing Goals Number of Weeks 8 Patient to be Ind w/ HEP Yes Patient to be Ind w/ Lymphedema Self Yes Massage Technique Patient to be Ind w/ Lymphedema Yes Management Patient to Adhere Lymphedema Precautions Yes Decrease Girth Measurments by (cm) Ye
== END 2019-01-10 11:05 | disposition home or self-care (01) ==
LOC: PT 11:00
PROVIDERS: Visit Provider Family Medicine
DX: I89.0 Lymphedema, not elsewhere classified (principal)
CPT/HCPCS: 97140; 97162

== ENCOUNTER → 2019-02-06 09:49 | Outpatient (CLI) | payer MEDICARE, SELFPAY ==
--- NOTE | 2019-02-06 09:55 | CI_ITS ---
Cerebrovascular Exam Indications: TIA 434.91. 782.0 Disturbance of skin sensation. IMPRESSIONS 1. The bilateral vertebral arteries are patent with normal antegrade flow. 2. Study suggests less than 20% stenosis involving the right internal carotid artery. 3. Study suggests less than 20% stenosis involving the left internal carotid artery. History: Coronary artery disease. Risk factors: Hypertension. Hyperlipidemia. Carotid duplex study. Complete study and Doppler flow study including spectral analysis, color and kay scale imaging. Height: Height: 185.4cm. Height: 73in. Weight: Weight: 104.3kg. Weight: 229.5lb. Body mass index: BMI: 30.3kg/m^2. Body surface area: BSA: 2.34m^2. Location: Vascular laboratory. Patient status: Outpatient. Tables: Arterial flow: + +--------+--------+ Location V sys V ed + +--------+--------+ Right CCA - proximal 78.6cm/s 21.2cm/s + +--------+--------+ Right CCA - distal 66cm/s 16.5cm/s + +--------+--------+ Right ECA 87.4cm/s 11.6cm/s + +--------+--------+ Right ICA - proximal 46.4cm/s 12.6cm/s + +--------+--------+ Right ICA - mid 55cm/s 13.4cm/s + +--------+--------+ Right ICA - distal 58.7cm/s 17.7cm/s + +--------+--------+ Right vertebral 32.4cm/s 10.4cm/s + +--------+--------+ Left CCA - proximal 66.7cm/s 16.3cm/s + +--------+--------+ Left CCA - distal 71.9cm/s 14.8cm/s + +--------+--------+ Left ECA 115cm/s 19.6cm/s + +--------+--------+ Left ICA - proximal 41.9cm/s 13cm/s + +--------+--------+ Left ICA - mid 49.9cm/s 14cm/s + +--------+--------+ Left ICA - distal 64.4cm/s 20.4cm/s + +--------+--------+ Left vertebral 33.8cm/s 11.8cm/s + +--------+--------+ Velocity ratios: + + + + + + Right, V sys Right, V ed Left, V sys Left, V ed + + + + + + Max ICA/dist CCA 0.89 1.07 0.9 1.38 + + + + + + (Report amended ) Electronically signed by: Guerrero Tenorio [id number]
--- NOTE | 2019-02-06 09:56 | CT_ITS ---
CT head/brain wo con HISTORY: Right hand numbness ITS.REASON: right hand numbness ORDERING PHYSICIAN: Roxane Ayon APRN PATIENT AGE: 83 years COMPARISON: 08/05/2017 TECHNIQUE: Axial images were obtained. Brain and bone windows reviewed. All CT scans at the facility use one or more dose reduction, viz: automated exposure control, ma/kV adjustment per patient size (including targeted exams where dose is matched to indication, i.e. head), or iterative reconstruction technique. FINDINGS: No midline shift, mass effect, intracranial hemorrhage, hydrocephalus, or extra-axial fluid collection is evident. There is generalized atrophy with periventricular ischemic gliotic change The calvarium has an unremarkable appearance. No mastoid effusion. There is moderate mucosal thickening of the ethmoid sinuses. IMPRESSION: No acute intracranial findings. Ethmoid sinus disease
== END ==
PROVIDERS: PCP Family Medicine; Visit Provider Nurse Practitioner Family
DX: E78.2 Mixed hyperlipidemia (principal); I10 Essential (primary) hypertension; I25.10 Atherosclerotic heart disease of native coronary artery without angina pectoris; I48.0 Paroxysmal atrial fibrillation; R00.1 Bradycardia, unspecified; R20.0 Anesthesia of skin; R55 Syncope and collapse
CPT/HCPCS: 70450; 93880

== ENCOUNTER → 2019-05-23 14:11 | Outpatient (CLI) | payer MEDICARE, SELFPAY ==
--- NOTE | 2019-05-23 14:22 | CA_ITS ---
APPROVED REPORT Bilateral Lower Extremity Venous Study for DVT. Manager Rental: ELSI Indications Lower Extremity Swelling: Right EDEMA PAIN Risk Factors Obesity Vein Imaging CFV (R): compressive, spontaneous, phasic, augmentation SFJ (R): compressive, spontaneous, phasic, augmentation FEM (R): compressive, spontaneous, phasic, augmentation POP (R): compressive, spontaneous, phasic, augmentation PTV (R): Compressible GSV (R): Compressible Peroneals (R):Not Visualized GAS (R): Compressible Findings No evidence of DVT or superficial thrombophlebitis in the veins scanned of the right lower extremity. Conclusion No evidence of DVT or superficial thrombophlebitis in the veins scanned of the right lower extremity. Electronically signed by : Guerrero Tenorio MD 05/23/2019 19:06:28
== END ==
PROVIDERS: PCP Nurse Practitioner Family; Visit Provider Nurse Practitioner Family
DX: R60.0 Localized edema (principal)
CPT/HCPCS: 93971

== ENCOUNTER → 2019-06-13 09:15 | Outpatient (CLI) | payer MEDICARE, SELFPAY ==
[2019-06-13 09:54] LABS: Blood Urea Nitrogen 40 mg/dL (7-18); Creatinine,Serum 1.58 mg/dL (0.70-1.30); Estimated Glomerular Filt Rate 42 ml/min (>60); GFR (African American) 51 ML/MIN (>60)
--- NOTE | 2019-06-13 10:26 | CT_ITS ---
PROCEDURE: CT PELVIS W CON CLINICAL INDICATION: RIGHT LOWER LIMB SWELLING Lower limb swelling COMPARISON: No exams were available for comparison TECHNIQUE: 75 mL Optiray 350 Axial images obtained with sagittal and coronal reformats. All CT scans at the facility use one or more dose reduction, viz: automated exposure control, ma/kV adjustment per patient size (including targeted exams where dose is matched to indication, i.e. head), or iterative reconstruction technique. FINDINGS: There is tortuosity/ectasia with atherosclerotic calcification of the aortoiliac vessels. No pelvic mass abnormal fluid collection or adenopathy apparent. There are mild osteoarthritic changes of the hips. There is slight increased density in the left inguinal area which may be due to prior inguinal hernia repair. Diverticulosis noted of the sigmoid colon but no evidence of diverticulitis. Degenerative changes are present in the lumbar spine with degenerative disc disease L4-L5 and L5-S1. There is fusion of L 3 and L4 IMPRESSION: 1. No acute finding. No pelvic mass or adenopathy. 2. Osteoarthritic changes of the hips and degenerative changes of the lumbar spine. Dictated by: Guerrero Tenorio MD 06/14/2019 09:48 Electronically signed by Guerrero Tenorio MD in [place] 06/14/2019 09:48
== END ==
PROVIDERS: PCP Family Medicine; Visit Provider Nurse Practitioner Family
DX: R60.0 Localized edema (principal)
CPT/HCPCS: 36415; 72193; 82565; 84520; Q9967

== ENCOUNTER 2019-07-09 10:00 | Outpatient (RCR) | payer MEDICARE, SELFPAY ==
--- NOTE | 2019-06-13 16:01 | HMH.PTOPWND ---
Rehab Outpt Wound Evaluation Rehab OP Wound Evaluation Start: 06/13/19 13:12 Freq: Status: Active Protocol: Document 06/13/19 15:54 SHOBHA (Rec: 06/13/19 16:01 PHORNE [id number]) Electronically Signed By Trenton Spain, PT 06/13/19 15:54 Subjective/History History History Pt is 83 yowm who presents with chronic edema of the right LE, worse x ~ 2-3 mos after insidious onset of right LE sciatic nerve radicular symptoms. He reports after the pain began moving down his right LE his edema increased signficantly. He reports no c/ o pain at this time and no tenderness to palpation. He had US performed which showed no DVT. He has PMH of HL, HTN, chronic low back pain, scoliosis, hernia repair, heart cath, and vein stripping x 3. Subjective Subjective Currently he reports stiffness in his ankle, no c/o pain. Lymphedema Eval Classification of Lymphedema Secondary Lymphedema Yes Stemmer's sign Stemmer's Sign no Stage of Lymphedema Lymphedema stages Stage I (Pitting edema, reduces w/ elevation, no fibrosis) Skin Changes Dry Skin Yes Taut, Shiny Skin Yes Redness Yes Other Changes Yes Pain Scale Pain Scale (0-10) 0 Affected Extremities Areas Affected by Lymphedema/Edema Right Lower Extremity,Left Lower Extremity Manual Lymphatic Drainage Treatment Area MLD Treatment Area Right Lower Extremity,Left Lower Extremity Wound Problems/Impairments Impairments Problems/Impairmments Palpation Tenderness,Impaired Strength,Impaired Gait Pattern ,Impaired Walking,Impaired Standing,Impaired Recreational Activities,Increased Edema, Lymphedema Present,Subjective C/O Pain,Impaired Self Care/ Self Management Prognosis Rehab Potential Good Clinical Impression Consistent with Diagnosis Yes Short Term Goals Number of Weeks 4 Decrease Edema Yes Patient to Understand
== END 2019-07-12 10:05 | disposition home or self-care (01) ==
LOC: PT 10:00
PROVIDERS: PCP Family Medicine; Visit Provider Nurse Practitioner Family
DX: R60.0 Localized edema (principal)
CPT/HCPCS: 97110; 97140; 97162; 97760

== ENCOUNTER 2020-03-13 15:15 | Emergency (ER) | payer MEDICARE, SELFPAY ==
[2020-03-13 15:25] VITALS: BP 155/82; PULSE 67; RESP 20; TEMP 36.6; O2SAT 95; BMI 28.2
[2020-03-13 15:53] LABS: Chloride 105 mmol/L (98-107); Potassium 3.8 mmoL/L (3.5-5.1); Sodium 143 mmol/L (136-145)
[2020-03-13 15:54] LABS: Basophils % 0.4 % (0.1-2.0); Eosinophils # 0.3 K/mm3 (0.0-0.4); Hematocrit 45.6 % (42.0-52.0); Hemoglobin 14.7 g/dL (14.1-18.0); Lymphocytes # 2.3 K/mm3 (0.7-4.5); Lymphocytes % 34.2 % (10-50); Mean Corpuscular HGB Conc 32.2 g/dL (31.8-35.4); Mean Corpuscular Hemoglobin 31.3 pg (27.0-31.2); Mean Corpuscular Volume 97.1 fl (80-94); Mean Platelet Volume 7.8 fl (7.4-10.4); Monocytes # 0.6 K/mm3 (0.1-1.0); Monocytes % 8.4 % (1.7-9.3); Neutrophils # 3.6 K/mm3 (1.8-7.8); Platelet Count 211 K/mm3 (142-424); Red Cell Distribution Width 13.1 % (11.5-17.5); White Blood Count 6.7 K/mm3 (4.8-10.8)
[2020-03-13 15:56] LABS: Alanine Aminotransferase 20 U/L (12-78); Albumin/Globulin Ratio 1.4 (1.1-1.8); Alkaline Phosphatase 92 U/L (38-126); Anion Gap 12.8 mEq/L (5-15); Aspartate Amino Transferase 28 U/L (17-59); Bilirubin,Total 0.9 mg/dl (0.2-1.3); Blood Urea Nitrogen 22 mg/dl (9-20); Calcium 9.5 mg/dl (8.4-10.2); Carbon Dioxide 29 mmol/L (22.0-30.0); Creatinine Clearance Estimated 80 mL/min (50-200); Estimated Glomerular Filt Rate 81 ml/min (>60); GFR (African American) 98 ML/MIN (>60); Globulin 2.9 g/dL (1.3-3.2); Glucose 121 mg/dl (74-100); Total Protein,Serum 6.9 g/dl (6.3-8.2)
[2020-03-13 16:00] VITALS: BP 121/66; PULSE 52; O2SAT 91
[2020-03-13 16:06] LABS: Strep Scrn Group A (Rapid) Negative (Negative)
--- NOTE | 2020-03-13 16:28 | HMH.EDGENADL ---
ED Disposition Clinical Impression: Viral infection, Person under investigation for COVID-19 Disposition: Home, Self-Care Condition on Discharge: Good Instructions: DI for Acute Bronchitis Prescriptions: methylPREDNISolone [Medrol 4mg tab] 4 mg PO DIRECTED #21 tab Transmission Status: Pending to [facility] Referrals: Cynthia Brantley MD [Primary Care Provider] - - Critical Care Critical Care Time: No Attestation: On 03/13/20, the high probability of a clinically significant, sudden or life threatening deterioration of the following system(s) required my full and direct attention, intervention and personal management. The time I documented below is in addition to time spent performing reported procedures but includes the following listed in this critical care notation. Medical Decision Making - Medical Records Medical records reviewed: Yes: I reviewed the patient's medical records. - Mike Inquiry Pt receiving controlled substance: No Vital Signs: 03/13/20 15:25 03/13/20 16:00 Temperature 97.9 F Temperature Source Oral Pulse Rate [Radial] 67 52 L Respiratory Rate 20 Blood Pressure [Right Arm] 155/82 H 121/66 Blood Pressure Mean [Right Arm] 106 84 Blood Pressure Source [Right Arm] Automatic Cuff Automatic Cuff Blood Pressure Position [Right Arm] Sitting Sitting 02 Sat by Pulse Oximetry 95 91 L Oxygen Delivery Method Room Air Room Air - Lab Data Lab results reviewed: Yes: I reviewed the patient's lab results. Lab Results 03/13/20 15:40: WBC 6.7, RBC 4.70, Hgb 14.7, Hct 45.6, MCV 97.1 H, MCH 31.3 H, MCHC 32.2, RDW 13.1, Plt Count 211, MPV 7.8, Neut % (Auto) 53.0, Lymph % (Auto) 34.2, Quay % (Auto) 8.4, Eos % (Auto) 4.0, Baso % (Auto) 0.4, Neut # (Auto) 3.6, Lymph # (Auto) 2.3, Quay # (Auto) 0.6, Eos # (Auto) 0.3, Baso # (Auto) 0.0 03/13/20 15:40: Sodium 143, Potassium 3.8, Chloride 105, Carbon Dioxide 29, Anion Gap 12.8, BUN 22 H, Creatinine 0.90, Estimated Creat Clear 80, Estimated GFR 81, Est GFR ( Amer) 98, Glucose 121 H, Calcium 9.5, Total Bilirubin 0.9, AST 28, ALT 20, Alkaline Phosphatase 92, Total Protein 6.9, Albumin 4.0, Globulin 2.9, Albumin/Globulin Ratio 1.4 03/13/20 15:40: Influenza Type A Ag Negative, Influenza Type B Ag Negative 03/13/20 15:40: Group A Strep Rapid Negative Result diagrams: 03/13/20 15:40 03/13/20 15:40 Orders (Tests/Meds): ORDERS Category Date Time Status Strep Screen Confirmation Stat Micro 03/13/20 15:40 Received General Adult HPI - General Chief complaint: Upper Respiratory Infection Stated complaint: SOB Time Seen by Provider: 03/13/20 16:28 Mode of Arrival: Ambulatory Limitations: No Limitations Description of Symptoms (Recalled from ER Triage Doc. by RN): Runny nose, cough - History of Present Illness HPI narrative: 84-year-old gentleman presents the ED with cough mild shortness of breath for the last 3 days. He also states he has some rhinorrhea no sore throat or headache. Patient also denies any recent fever shakes or chills. Patient denies any known COVID exposures. Patient denies any other acute symptoms. - Related Data Home Medications Medication Instructions Recorded Confirmed Atorvastatin Calcium [Lipitor 20mg 20 mg PO HS 08/05/17 05/21/19 Tab] aspirin 81 mg tablet,delayed 81 mg PO DAILY tab 09/27/17 05/21/19 release amlodipine 5 mg-valsartan 160 mg 1 tab PO DAILY 10/17/18 05/21/19 tablet hydrochlorothiazide 12.5 mg tablet 12.5 mg PO DAILY 10/17/18 05/21/19 Bisoprolol Fumarate [Bisoprolol 2.5 mg PO DAILY 05/21/19 05/21/19 5mg Tablet] Gabapentin [Gabapentin 100mg Cap] 100 mg PO DAILY 05/21/19 05/21/19 Memantine HCl/Donepezil HCl 28 mg PO DAILY 05/21/19 05/21/19 [Namzaric 28 mg-10 mg Capsule] predniSONE [Prednisone 5mg Tab 5 mg PO UD DOSE PK 05/21/19 05/21/19 Dose-Pack] Previous Rx's Medication Instructions Recorded Etodolac [Etodolac 200mg Cap*] 200 mg PO Q6H
[2020-03-13 16:32] VITALS: BP 121/66; PULSE 52; RESP 20; TEMP 36.6; O2SAT 95
[2020-03-15 13:17] LABS: Covid-19 Nasal PCR Sendout Lex Not Detected
== END 2020-03-13 16:40 | disposition home or self-care (01) ==
PROVIDERS: Emergency Provider Family Medicine; PCP Family Medicine
DX: B34.9 Viral infection, unspecified (principal); Z03.818 Encounter for observation for suspected exposure to other biological agents ruled out; E78.5 Hyperlipidemia, unspecified; I10 Essential (primary) hypertension; I25.2 Old myocardial infarction; Z95.0 Presence of cardiac pacemaker; Z79.899 Other long term (current) drug therapy
CPT/HCPCS: 80053; 85025; 87275; 87276; 87430; 99283; U0004

== ENCOUNTER 2020-03-25 08:48 | Day surgery (SDC) | payer MEDICARE, SELFPAY ==
[2020-03-20 11:59] VITALS: BMI 28.6
[2020-03-25 09:15] VITALS: BP 132/73; PULSE 50; RESP 18; TEMP 36.4; O2SAT 91
[2020-03-25 09:58] LABS: Coronavirus 19 IgG Antibody Negative (Negative); Coronavirus 19 IgM Antibody Negative (Negative)
[2020-03-25 10:49] VITALS: BP 138/80; PULSE 51; RESP 16; TEMP 36.6; O2SAT 98
== END 2020-03-25 11:00 | disposition home or self-care (01) ==
LOC: OUTP 08:49
PROVIDERS: PCP Family Medicine; Visit Provider Ophthalmology
PROC: (CPT 66821; principal; 2020-03-25 09:30)
DX: H26.491 Other secondary cataract, right eye (principal); Z96.1 Presence of intraocular lens; Z79.899 Other long term (current) drug therapy; I10 Essential (primary) hypertension; E78.5 Hyperlipidemia, unspecified; I25.10 Atherosclerotic heart disease of native coronary artery without angina pectoris; I48.91 Unspecified atrial fibrillation; Z79.82 Long term (current) use of aspirin; Z20.828 Contact with and (suspected) exposure to other viral communicable diseases
CPT/HCPCS: 66821; 86328

== ENCOUNTER → 2020-05-12 11:59 | Outpatient (CLI) | payer MEDICARE, SELFPAY ==
[2020-05-12 15:07] LABS: Basophils # 0.1 K/mm3 (0-0.2); Basophils % 0.5 % (0.1-2.0); Eosinophils # 0.3 K/mm3 (0.0-0.4); Hematocrit 44.4 % (42.0-52.0); Hemoglobin 14.6 g/dL (14.1-18.0); Lymphocytes # 2.1 K/mm3 (0.7-4.5); Lymphocytes % 24.7 % (10-50); Mean Corpuscular HGB Conc 32.9 g/dL (31.8-35.4); Mean Corpuscular Hemoglobin 32.1 pg (27.0-31.2); Mean Corpuscular Volume 97.5 fl (80-94); Mean Platelet Volume 8.7 fl (7.4-10.4); Monocytes # 0.7 K/mm3 (0.1-1.0); Monocytes % 8.6 % (1.7-9.3); Neutrophils # 5.3 K/mm3 (1.8-7.8); Neutrophils % 63.2 % (37.0-80.0); Platelet Count 229 K/mm3 (142-424); Red Blood Count 4.55 M/mm3 (4.60-6.20); Red Cell Distribution Width 13.7 % (11.5-17.5); White Blood Count 8.4 K/mm3 (4.8-10.8)
== END ==
PROVIDERS: PCP Family Medicine; Visit Provider Nurse Practitioner
DX: Z20.828 Contact with and (suspected) exposure to other viral communicable diseases (principal); U07.1 COVID-19
CPT/HCPCS: 85025; U0003

== ENCOUNTER 2020-07-31 10:00 | Outpatient (RCR) | payer MEDICARE, SELFPAY ==
--- NOTE | 2020-07-01 15:44 | HMH.PTOPWND ---
Rehab Outpt Wound Evaluation Rehab OP Wound Evaluation Start: 07/01/20 15:13 Freq: Status: Active Protocol: Document 07/01/20 15:31 SHOBHA (Rec: 07/01/20 15:44 PHORNE [id number]) Electronically Signed By Trenton Spain, PT 07/01/20 15:31 Subjective/History History History Pt is 84 yowm who presents with c/o increased R LE edema for several years, worse over the past 1-2 mos. He has hx of significant trauma requiring multiple sutures on the R lower leg, vein stripping procedure, and R TKA. Currently he has no c/o pain or numbness in the R lower leg , but 2+pitting edema remains present. He reports medication his MD prescribed has helped decrease his edema. He has PMH of HTN and HL. Subjective Subjective No c/o pain or palpation tenderness at this time. Significant blue telangectasia below the R ankle and into the foot. Lymphedema Eval Classification of Lymphedema Secondary Lymphedema Yes: likely CVI Stemmer's sign Stemmer's Sign no Stage of Lymphedema Lymphedema stages Stage II (Pitting edema, increased fibrosis w/ decreased pitting) Skin Changes Dry Skin Yes Redness Yes Brittle Uneven Nails Yes Discoloration of Skin Yes Other Changes Yes Pain Scale Pain Scale (0-10) 0 Affected Extremities Areas Affected by Lymphedema/Edema Right Lower Extremity Manual Lymphatic Drainage Treatment Area MLD Treatment Area Right Lower Extremity Wound Problems/Impairments Impairments Problems/Impairmments Impaired Endurance,Impaired Gait Pattern,Impaired Walking, Impaired Standing,Impaired Recreational Activities, Increased Edema,Lymphedema Present,Subjective C/O Pain, Impaired Self Care/Self Management Prognosis Rehab Potential Good Clinical Impression Consistent with Diagnosis Yes Short Term Goals Number of Weeks 4 Increase Ability to Walk Yes Decrease Edema
== END 2020-07-31 10:05 | disposition home or self-care (01) ==
LOC: PT 10:00
PROVIDERS: PCP Family Medicine; Visit Provider Family Medicine
DX: I89.0 Lymphedema, not elsewhere classified (principal)
CPT/HCPCS: 97140; 97162

== ENCOUNTER → 2021-01-14 14:22 | Outpatient (CLI) | payer MEDICARE, SELFPAY ==
--- NOTE | 2021-01-14 14:32 | XR_ITS ---
PROCEDURE: XR CHEST 2V CLINICAL HISTORY: COUGH COMPARISON: CR CXR CHEST(2 VIEWS-NOT PORTABLE) from 12/04/2015 CR CXR1VP XR chest portable from 08/05/2017 CR CXR2V XR chest 2V from 11/09/2017 FINDINGS: The cardiomediastinal silhouette and pulmonary vascularity are within normal limits. There is tortuosity/ectasia of the descending thoracic aorta Loop recorder device is in place. Mild atelectatic or fibrotic changes are present in the right lung base. Lumbar curvature convex right. Reversal of the lower thoracic lordosis IMPRESSION: No change with no acute finding. Fibrotic changes in the right lung base Dictated by: Guerrero Tenorio MD 01/14/2021 15:02 Guerrero Tenorio MD in [place] 01/14/2021 15:02
--- NOTE | 2021-01-14 15:03 | ECG_ITS ---
APPROVED REPORT Exam: Resting ECG HR:49 bpm ECG Measurements Heart Rate 49 AXES [place] 140 P 40 QRSd 114 QRS 5 QT 484 T -54 QTc 437 Conclusion Marked sinus bradycardia with premature atrial complexes with aberrant conduction ST & T wave abnormality, consider inferior ischemia Abnormal ECG Electronically signed by : Benjamin Welch, 01/14/2021 21:34:26
== END ==
PROVIDERS: PCP Family Medicine; Visit Provider Family Medicine
DX: R05 Cough (principal); I49.9 Cardiac arrhythmia, unspecified
CPT/HCPCS: 71046; 93005

== ENCOUNTER → 2022-01-20 13:13 | Outpatient (CLI) | payer MEDICARE, SELFPAY ==
--- NOTE | 2022-01-20 13:23 | ECG_ITS ---
APPROVED REPORT Exam: Resting ECG HR:46 bpm ECG Measurements Heart Rate 46 AXES [place] 146 P 67 QRSd 141 QRS -49 QT 468 T 72 QTc 427 Conclusion SINUS BRADYCARDIA LEFT AXIS DEVIATION [QRS AXIS < -30] LEFT BUNDLE BRANCH BLOCK [120+ ms QRS DURATION, 80+ ms Q/S IN V1/V2, 85+ ms R IN I/aVL/V5/V6] ABNORMAL ECG UNCONFIRMED REPORT Electronically signed by : Benjamin Welch MD 01/20/2022 21:00:45
== END ==
PROVIDERS: PCP Family Medicine; Visit Provider Family Medicine
DX: I49.8 Other specified cardiac arrhythmias (principal)
CPT/HCPCS: 93005

== ENCOUNTER → 2022-02-10 13:45 | Outpatient (CLI) | payer MEDICARE, SELFPAY ==
--- NOTE | 2022-02-10 13:49 | XR_ITS ---
FINAL REPORT CLINICAL HISTORY: lt elbow pain FINDINGS: LEFT ELBOW 3 views were obtained. There is no acute fracture or dislocation. There is moderate degenerative change. There is a 7 mm calcification anterior to the elbow which is likely loose body. There is significant soft tissue swelling over the olecranon which may represent olecranon bursitis. IMPRESSION: Findings may represent olecranon bursitis. Likely loose body anterior to the elbow. Reviewed, Interpreted and Dictated by Ariel Philip III, MD Transcribed by Brianne Yang Authenticated and [facility]
== END ==
PROVIDERS: PCP Family Medicine; Visit Provider Orthopaedic Surgery
DX: M25.522 Pain in left elbow (principal)
CPT/HCPCS: 73080

== ENCOUNTER → 2022-02-10 14:41 | Outpatient (CLI) | payer MEDICARE, SELFPAY | PROVIDERS: Visit Provider Orthopaedic Surgery | DX: M70.22 Olecranon bursitis, left elbow (principal) | CPT/HCPCS: 87070 ==

== ENCOUNTER → 2022-02-19 13:07 | Outpatient (CLI) | payer MEDICARE, SELFPAY ==
--- NOTE | 2022-02-19 13:12 | XR_ITS ---
FINAL REPORT CLINICAL HISTORY: foot pain FINDINGS: RIGHT FOOT: Three views of the right foot were obtained. There is no acute fracture or dislocation. There are mild degenerative changes. There are small calcaneal spurs. IMPRESSION: Mild degenerative changes with no acute bony abnormality. Reviewed, Interpreted and Dictated by Ariel Philip III, MD Transcribed by Whitney Sutherland Authenticated and [facility]
== END ==
PROVIDERS: PCP Family Medicine; Visit Provider Orthopaedic Surgery
DX: M79.671 Pain in right foot (principal)
CPT/HCPCS: 73630

== ENCOUNTER 2022-02-19 14:59 | Outpatient (RCR) | payer MEDICARE, SELFPAY | END 2022-02-19 16:00 | disposition home or self-care (01) | LOC: PT 14:59 | PROVIDERS: Visit Provider Orthopaedic Surgery | DX: M79.671 Pain in right foot (principal) | CPT/HCPCS: 97760 ==

== ENCOUNTER 2022-03-05 13:17 | Emergency (ER) | payer MEDICARE, SELFPAY ==
[2022-03-05 14:20] VITALS: BP 131/67; PULSE 72; RESP 18; TEMP 36.6; O2SAT 97; BMI 34.7
--- NOTE | 2022-03-05 14:46 | EXP.UTC ---
Discharge Plan Disposition Patient Disposition: Home, Self-Care Condition: Good Prescriptions Prescriptions: No Action amlodipine-valsartan [Exforge] 5-160 mg tablet 1 tab PO DAILY furosemide 40 mg tablet 40 mg PO DAILY gabapentin 300 mg capsule 300 mg PO DAILY levocetirizine 5 mg tablet 5 mg PO DAILY Label Comments: TAKE ONE TABLET BY MOUTH EVERY EVENING aspirin [Adult Low Dose Aspirin] 81 mg tablet,delayed release (DR/EC) 81 mg PO DAILY memantine-donepezil 28 MG-1 capsule,sprinkle,ER 24hr 28 mg PO DAILY bisoprolol fumarate 5 MG tablet 2.5 mg PO DAILY atorvastatin 20 MG tablet 20 mg PO HS etodolac 200 MG capsule 200 mg PO Q6H PRN (Reason: Moderate Pain) Qty: 20 0RF Referrals Follow up/Referrals: isaías Reyna [Other] - See instructions Robin Khan [Other] - 03/06/22 11:10 am Cynthia Brantley MD [Primary Care Provider] - See instructions Activity Restrictions/Add. Instructions Additional Instructions/Restrictions: Follow up tomorrow with [facility] as scheduled Return if needed Straight to ER if any life threatening symptoms Clinical Impressions Clinical Impression: Eye problem Discharge ED Provider: Carlita Maya [facility] General Stated complaint: eye irritation Mode of Arrival: Ambulatory Source of Information: Patient Limitations: No Limitations Time Seen by Provider: 03/05/22 14:46 Description of Symptoms (Recalled from Triage Doc. by RN): PATIENT REPORTS HE FEELS LIKE SOMETHING IS IN HIS LEFT EYE X 2 DAYS HEENT Symptoms (Recalled from RN notes): Yes Resp Symptoms (Recalled from RN notes): No Skin Symptoms (Recalled from RN notes): No MS Symptoms (Recalled from RN notes): No Functional Status (Recalled from RN notes): WNL History of Present Illness Provider Complaint: Patient state that he has been having watery feeling in his left eye and not sure if something may or may not be in there for the last couple of days States that his was worried and wanted to get him checked States that it isnt hurting or anything just will water a bit and feels something every now and then in the corner of the left eye Denies known FB Related Data Home Medications Medication Instructions Recorded Confirmed atorvastatin 20 mg tablet 20 mg PO HS Cholesterol 08/05/17 02/19/22 aspirin 81 mg tablet,delayed 81 mg PO DAILY heart health 09/27/17 02/19/22 release (Adult Low Dose Aspirin) amlodipine 5 mg-valsartan 160 mg 1 tab PO DAILY HTN 10/17/18 02/19/22 tablet (Exforge) bisoprolol fumarate 5 mg tablet 2.5 mg PO DAILY HTN 05/21/19 02/19/22 memantine ER 28 mg-donepezil 10 mg 28 mg PO DAILY memory 05/21/19 02/19/22 capsule sprinkle,ext.release 24 hr furosemide 40 mg tablet 40 mg PO DAILY 02/19/22 02/19/22 gabapentin 300 mg capsule 300 mg PO DAILY 02/19/22 02/19/22 levocetirizine 5 mg tablet 5 mg PO DAILY 02/19/22 02/19/22 Previous Rx's Medication Instructions Recorded etodolac 200 mg capsule 200 mg PO Q6H PRN Moderate Pain 02/11/19 #20 caps Allergies Allergy/AdvReac Type Severity Reaction Status Date / Time No Known Allergies Allergy Verified 02/19/22 13:38 Worker's Comp Is this a Worker's Comp case?: No [facility] Medical History (Updated 03/05/22 @ 15:09 by Carlita Maya APRN) Abnormal ECG Vasovagal episode Vasovagal syncope Surgical History (Updated 03/05/22 @ 14:36 by Gabrielle Bridges RN) History of knee surgery Social History (Updated 03/05/22 @ 14:36 by Gabrielle Bridges RN) Smoking Status: Never smoker second hand exposure: No alcohol intake: current substance use type: denies use current occupational status: retired Travel in the last 8 weeks: None household members: spouse housing: house caffeine: No ROS Obtained: Yes All systems reviewed & no additional complaints except as documented and Yes Systems reviewed as appropriate & no additional complaints except
[2022-03-05 15:16] VITALS: BP 131/67; PULSE 72; RESP 18; TEMP 36.6; O2SAT 97
== END 2022-03-05 15:22 | disposition home or self-care (01) ==
PROVIDERS: Emergency Provider Nurse Practitioner; PCP Family Medicine
DX: H57.12 Ocular pain, left eye (principal); R94.31 Abnormal electrocardiogram [ECG] [EKG]; R55 Syncope and collapse; Z79.82 Long term (current) use of aspirin; Z79.899 Other long term (current) drug therapy
CPT/HCPCS: 99213; G0463

== ENCOUNTER → 2022-03-26 12:29 | Outpatient (CLI) | payer MEDICARE, SELFPAY ==
--- NOTE | 2022-03-26 12:39 | XR_ITS ---
FINAL REPORT CLINICAL HISTORY: Rt foot pain and swelling FINDINGS: 3 views of the right foot were obtained. The bones are osteopenic. There is no acute fracture or dislocation. The joint spaces are intact. There is a large os trigonum measuring 11 mm. There is a small plantar spur. IMPRESSION: Osteopenia. Small plantar spur. Reviewed, Interpreted and Dictated by Andre Lester MD Transcribed by Eliud Damon Authenticated and [facility]
--- NOTE | 2022-03-26 12:39 | XR_ITS ---
FINAL REPORT CLINICAL HISTORY: weightbearing Chávez heel view FINDINGS: LEFT CALCANEUS 2 views were obtained. There is no acute fracture. The visualized joint spaces are intact. There is a large os trigonum. There is a small plantar spur. IMPRESSION: Small plantar spur. Reviewed, Interpreted and Dictated by Andre Lester MD Transcribed by Eliud Damon Authenticated and [facility]
--- NOTE | 2022-03-26 12:39 | XR_ITS ---
FINAL REPORT CLINICAL HISTORY: Rt ankle pain and swelling FINDINGS: RIGHT ANKLE: Three views of the right ankle were obtained. There is no acute fracture. There is disruption of the mortise with narrowing laterally and widening medially. There is a large os trigonum. There is diffuse soft tissue swelling. IMPRESSION: Diffuse soft tissue swelling with disruption of the mortise. Reviewed, Interpreted and Dictated by Andre Lester MD Transcribed by Eliud Damon Authenticated and [facility]
== END ==
PROVIDERS: PCP Family Medicine; Visit Provider Orthopaedic Surgery
DX: M79.671 Pain in right foot (principal); M25.571 Pain in right ankle and joints of right foot
CPT/HCPCS: 73610; 73630; 73650

== ENCOUNTER 2022-04-07 13:00 | Outpatient (RCR) | payer MEDICARE, SELFPAY ==
--- NOTE | 2022-03-02 14:42 | HMH.PTOPWND ---
Rehab Outpt Wound Evaluation Rehab OP Wound Evaluation Start: 03/02/22 14:37 Freq: Status: Active Protocol: Document 03/02/22 14:38 SHOBHA (Rec: 03/02/22 14:41 PHOEDMOND [id number]) E-signed By Trenton Spain PT Subjective/History History History Pt is 86 yowm who presents with increased edmea in R LE for many years, worse for the past 6-8 mos. He reports many injuries to the R LE in his younger years that he assumes precipitated his condition. He reports no pain or numbness at this time. Subjective Subjective No c/o pain and 0/4 tenderness to palpation. 2+ pitting edema noted to R mid-calf to ankle area. Lymphedema Eval Classification of Lymphedema Secondary Lymphedema Yes: likely CVI Stemmer's sign Stemmer's Sign no Stage of Lymphedema Lymphedema stages Stage I (Pitting edema, reduces w/ elevation, no fibrosis) Skin Changes Dry Skin Yes Redness Yes Discoloration of Skin Yes Other Changes Yes Pain Scale Pain Scale (0-10) 0 Affected Extremities Areas Affected by Lymphedema/Edema Right Lower Extremity Manual Lymphatic Drainage Treatment Area MLD Treatment Area Right Lower Extremity Wound Problems/Impairments Impairments Problems/Impairmments Impaired Endurance,Impaired Transfers,Impaired Gait Pattern,Impaired Walking, Impaired Standing,Impaired Stepping on Uneven Surface, Impaired Recreational Activities,Increased Edema, Lymphedema Present,Impaired Self Care/Self Management Prognosis Rehab Potential Good Clinical Impression Consistent with Diagnosis Yes Short Term Goals Number of Weeks 2 Decrease Edema Yes: 1+ pitting edema R LE Patient to Understand Lymphedema Yes Treatment and Exercises Usp Goals Number of Weeks 4 Decrease Edema Yes: no pitting edema R LE Decrease Lymphedema Yes Patient to be Ind w/ HEP Yes Patient to Adhere Lymphedema Precautions Yes Outpatient Therapy Plan of Care Treatment Plan May Include Therapeutic Exercise Including Home Yes Exercise Program
== END 2022-04-07 14:00 | disposition home or self-care (01) ==
LOC: PT 13:00
PROVIDERS: PCP Family Medicine; Visit Provider Orthopaedic Surgery
DX: M79.671 Pain in right foot (principal); I89.0 Lymphedema, not elsewhere classified
CPT/HCPCS: 97140; 97162

== ENCOUNTER 2022-08-04 13:00 | Outpatient (RCR) | payer MEDICARE, SELFPAY ==
--- NOTE | 2022-07-08 15:54 | HMH.PTOPWND ---
Rehab Outpt Wound Evaluation Rehab OP Wound Evaluation Start: 07/08/22 15:48 Freq: Status: Active Protocol: Document 07/08/22 15:48 [email or web address] (Rec: 07/08/22 15:54 PHOEDMOND [id number]) E-signed By Trenton Spain, PT Subjective/History History History This is the initial PT eval for Chandra Morris 86 yowm who presents with increased edema in R LE for many years, worse for the past 12-18 mos. He reports many injuries to the R LE in his younger years that he assumes precipitated his condition. He reports no pain or numbness at this time. He is well known to this clinic and has previously been administered compression stockings and wraps before, but he has no recollection of this and is unsure where these devices would be at his home. Subjective Subjective Pt presents with no c/o pain at this time, but pain at worst is 3/10, usually with walking. 3+ pitting edema to R foot and lower leg noted this date. Mild, blanchable erythema noted in R lower leg. Lymphedema Eval Classification of Lymphedema Secondary Lymphedema Yes: CVI Stemmer's sign Stemmer's Sign yes Stage of Lymphedema Lymphedema stages Stage I (Pitting edema, reduces w/ elevation, no fibrosis) Skin Changes Dry Skin Yes Skin Folds Yes Redness Yes Brittle Uneven Nails Yes Discoloration of Skin Yes Other Changes Yes Pain Scale Pain Scale (0-10) 3 Affected Extremities Areas Affected by Lymphedema/Edema Right Lower Extremity Manual Lymphatic Drainage Treatment Area MLD Treatment Area Right Lower Extremity Wound Problems/Impairments Impairments Problems/Impairmments Impaired Walking,Impaired Standing,Impaired Recreational Activities,Increased Edema, Lymphedema Present,Subjective C/O Pain,Impaired Self Care/ Self Management Prognosis Rehab Potential Good Comment
== END 2022-08-04 13:05 | disposition home or self-care (01) ==
LOC: PT 13:00
PROVIDERS: PCP Family Medicine; Visit Provider Orthopaedic Surgery
DX: I89.0 Lymphedema, not elsewhere classified (principal)
CPT/HCPCS: 97140; 97162